=== PATIENT | male | born 1945 | race Hispanic/Latino ===

== ENCOUNTER 2021-09-10 18:14 | Emergency (ER) | payer OTHER, MEDICARE ==
--- OUTSIDE RECORDS SUMMARY | 2021-09-10 18:17 | XMS REPORT | Continuity of Care Document ---
:1945 Author Organization [facility] t Address [address] [place] [address] Care Team Providers Name Role Phone Russel Minh Haque Attending Clinician Unavailable Problems This patient has no known problems. Allergies, Adverse Reactions, Alerts This patient has no known allergies or adverse reactions. Medications Ordered Filled Start Stop Current Ordering Indication Dosage Frequency Signature Comments Components Source Medication Medication Date Date Medication? Clinician (SIG) Name Name Losartan Losartan Yes Minh 0.5 tablet Common Potassium Potassium Goode Spir it [facility] Warfarin Warfarin Yes Minh 1 tablet C ommon Sodium Sodium Goode [facility] Carvedilol Carvedilol Yes Minh as C ommon Goode directed [facility] Digoxin Digoxin Yes Minh 1 tablet Com mon [facility] Spironolact Spironolact Yes Minh 1 tablet Common one one [facility] Immunizations Ordered Immunization Filled Immunization Date Status Commen ts Source Name Name FluAD FluAD 2018-11-15 Completed [facility] 00:00:00 [facility] Procedures This patient has no known procedures. Encounters Start End Encounter Admission Attending Care Care Encounter Source Date/Time Date/Time Type Type Clinicians Facility Department ID 2021-04-29 Outpatient Russel [facility] [id number] Common 13:00:01 Minh [facility] 2021-03-04 Outpatient Goode [facility] [id number] Common 14:30:45 Minh [facility] 2021-03-04 Outpatient Goode, STLMLC STLMLC [id number] Common 13:12:22 Minh [id number] [facility] 2021-03-04 Outpatient Goode, STLMLC STLMLC [id number] Common 12:33:58 Minh [id number] [facility] 2021-03-04 Outpatient Goode, STLMLC STLMLC [id number] Common 12:19:44 Minh [id number] [facility] 2021-03-04 Outpatient Goode, STLMLC STLMLC [id number] Common 11:22:52 Minh [id number] [facility] 2021-03-04 Outpatient Goode, STLMLC STLMLC [id number] Common 11:17:42 Minh [id number] [facility] 2021-03-04 Outpatient Goode, STLMLC STLMLC [id number] Common 11:01:14 Minh [id number] [facility] 2021-08-24 2021-08-24 ambulatory STLMLC STLMLC [id number] Common 00:00:00 00:00:00 [facility] 2021-08-18 2021-08-18 ambulatory STLMLC STLMLC [id number] Common 00:00:00 00:00:00 [facility] 2021-08-17 2021-08-17 ambulatory STLMLC STLMLC [id number] Common 00:00:00 00:00:00 [facility] 2021-07-16 2021-07-16 ambulatory STLMLC STLMLC [id number] Common 00:00:00 00:00:00 [facility] 2021-05-04 2021-05-04 ambulatory STLMLC STLMLC [id number] Common 00:00:00 00:00:00 [facility] 2021-04-29 2021-04-29 ambulatory STLMLC STLMLC [id number] Common 00:00:00 00:00:00 [facility] 2021-04-29 2021-04-29 ambulatory STLMLC STLMLC [id number] Common 00:00:00 00:00:00 [facility] 2021-02-10 2021-02-10 ambulatory STLMLC STLMLC [id number] Common 00:00:00 00:00:00 [facility] 2021-02-10 2021-02-10 ambulatory STLMLC STLMLC [id number] Common 00:00:00 00:00:00 [facility] 2021-01-20 2021-01-20 ambulatory STLMLC STLMLC [id number] Common 00:00:00 00:00:00 [facility] 2020-12-30 2020-12-30 ambulatory STLMLC STLMLC [id number] Common 00:00:00 00:00:00 [facility] 2020-12-30 2020-12-30 ambulatory STLMLC STLMLC [id number] Common 00:00:00 00:00:00 [facility] 2020-09-16 2020-09-16 Outpatient STLMLC STLMLC [id number] Common 00:00:00 00:00:00 [facility] 2020-04-07 2020-04-07 Outpatient STLMLC STLMLC [id number] Common 00:00:00 00:00:00 [facility] 2019-11-14 2019-11-14 Outpatient STLMLC STLMLC [id number] Common 00:00:00 00:00:00 [facility] 2019-11-14 2019-11-14 Outpatient STLMLC STLMLC [id number] Common 00:00:00 00:00:00 [facility] 2019-07-03 2019-07-03 [facility] [id number] Common 15:15:00 15:15:00 [address] [employer] [address] [facility] 2019-05-18 2019-05-18 [facility] [id number] Common 14:57:00 14:57:[address] [employer] [address] [facility] 2019-04-18 2019-04-18 [facility] [id number] Common 11:15:00 11:15:[address] [facility] 2019-02-22 2019-02-22 [facility] [id number] Common 14:45:00 14:45:[address] [facility] 2019-02-13 2019-02-13 [facility] [id number] Common 16:45:00 16:45:[address] [facility] 2018-11-15 2018-11-15 [facility] [id number] Common 13:15:00 13:15:[address] [facility] 2018-08-07 2018-08-07 [facility] [id number] Common 16:30:00 16:30:[address] [facility] 2018-05-11 2018-05-11 [facility] [id number] Common 09:15:00 09:15:[address] [facility] 2018-04-25 2018-04-25 [facility] [id number] Common 15:15:00 15:15:[address] [facility] 2017-11-22 2017-11-22 [facility] [id number] Common 08:00:00 08:00:[address] [facility] Results This patient has no known results.
--- NOTE | 2021-09-10 19:07 | RAD REPORT ---
EXAM DESCRIPTION: RAD - Knee Left 3 View - 09/10/2021 6:53 pm CLINICAL HISTORY: PAIN COMPARISON: No comparisons FINDINGS: A patella fracture is present. There is a transverse fracture through the midportion of th e patella with an additional sagittally oriented fracture line extending from the transverse fracture line to the superior margin of the patella. No significant distraction is identified. There are dege nerative spurs along the articular margins of the patella. Medial compartment narrowing is present with medial and lateral compartment marginal spurring. Spurri ng seen along the intercondylar notch and tibial spine. Femoral condyle and tibial plateau fractures are not identifiable.Large joint effusion or hemarthrosis present. IMPRESSION: Comminuted patella fracture. Large joint effusion or hemarthrosis. 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
--- NOTE | 2021-09-10 19:39 | EDPHYS ---
Physician Documentation [facility] Name: Ignacio Honeycutt Age: 76 yrs Sex: Male : 1945 Arrival Date: 09/10/2021 Time: 18:16 Bed 7 Private MD: ED Physician Linwood Garces HPI: 09/10 23:42 This 76 yrs old Male presents to ER via EMS with complaints of Leg Pain. kb 23:42 The patient presents with decreased range of motion, pain, swelling, tenderness. The kb complaints affect the left knee. Context: The problem was sustained at a store, resulted from the patient falling, the patient is not able to bear weight, the patient is not able to ambulate. Onset: The symptoms/episode began/occurred just prior to arrival. Modifying factors: The symptoms are alleviated by nothing. the symptoms are aggravated by movement. Associated signs and symptoms: Pertinent positives: swelling, Pertinent negatives calf tenderness, fever, nausea, numbness, rash, tingling, vomiting, warmth, weakness. Treatment prior to arrival includes: no previous treatment. Severity of symptoms: At their worst the symptoms were moderate, in the emergency department the symptoms are unchanged. The patient has not experienced similar symptoms in the past. The patient has not recently seen a physician. Patient states he slipped on a wet surface at [facility] just prior to arrival causing him to fall. Reports pain to left knee. Historical: - Allergies: 18:21 No Known Allergies; ph - Immunization history:: Adult Immunizations up to date. - Social history:: Smoking status: Patient denies any tobacco usage or history of. ROS: 23:42 Constitutional: Negative for fever, chills, and weight loss. kb 23:42 MS/extremity: Positive for decreased range of motion, pain, swelling, tenderness, of the left knee. 23:42 All other systems are negative. Exam: 23:42 Constitutional: This is a well developed, well nourished patient who is awake, alert, kb and in no acute distress. Head/Face: Normocephalic, atraumatic. ENT: Moist Mucous membranes Respiratory: Respirations even and unlabored. No increased work of breathing. Talking in full sentences Skin: Warm, dry with normal turgor. Normal color. Neuro: Awake and alert, GCS 15, oriented to person, place, time, and situation. Moves all extremities. Normal gait. Psych: Awake, alert, with orientation to person, place and time. Behavior, mood, and affect are within normal limits. 23:42 Musculoskeletal/extremity: Extremities: grossly normal except: noted in the left knee: decreased ROM, pain, swelling, tenderness, ROM: limited active range of motion, limited active range of motion due to pain, Circulation is intact in all extremities. Sensation intact. Weight bearing: is unable to bear weight. Vital Signs: 18:18 BP 141 / 88; Pulse 59; Resp 18; Temp 97.8; Pulse Ox 97% on R/A; Weight 90.72 kg; Height ph 5 ft. 11 in. (180.34 cm); 18:18 Body Mass Index 27.89 (90.72 kg, 180.34 cm) ph MDM: 18:25 Patient medically screened. kb 19:25 Data reviewed: vital signs, nurses notes. Data interpreted: Pulse oximetry: on room air kb is 97 %. Interpretation: normal. Counseling: I had a detailed discussion with the patient and/or guardian regarding: the historical points, exam findings, and any diagnostic results supporting the discharge/admit diagnosis, radiology results, the need for outpatient follow up, a orthopedic surgeon, to return to the emergency department if symptoms worsen or persist or if there are any questions or concerns that arise at home. Physician consultation: Kuldip Pan MD was contacted at 19:26, regarding consult, patient's condition, and will see patient in office, next week, recommends knee immobilizer to be worn at all times and crutches. Pt may weight bear with crutches and knee immobilizer. He will see pt in clinic next week. 09/10 18:22 Order name: Knee Left 3 View XRAY; Complete Time: 19:10 ph 09/10 18:22 Order name: Ice pack; Complete Time: 19:11 ph 09/10 19:25 Order name: Knee Immobilizer; Complete Time: 19:56 kb 09/10 19:25 Order name: Crutches; Complete Time: 19:56 kb Administered Medications: 19:50 Drug: [place] (HYDROcodone-acetaminophen) (7.5 mg-325 mg) 1 tabs Route: PO; ll3 19:57 Follow up: Response: Medication administered at discharge. ll3 19:50 Drug: Ibuprofen 400 mg Route: PO; ll3 19:57 Follow up: Response: Medication administered at discharge. ll3 Disposition: 09/11 09:08 Co-signature as Attending Physician, Linwood Garces MD I agree with the assessment and kdr plan of care. Disposition Summary: 09/10/21 19:39 Discharge Ordered Location: Home kb Condition: Stable kb Diagnosis - Displaced comminuted fracture of left patella, initial encounter for closed fracturekb Followup: kb - With: Emergency Department - When: As needed - Reason: Worsening of condition Followup: kb - With: Private Physician - When: 2 - 3 days - Reason: Recheck today's complaints, Continuance of care, Re-evaluation by your physician Followup: kb - With: Kuldip Pan MD - When: Tomorrow - Reason: Recheck today's complaints Discharge Instructions: - Discharge Summary Sheet kb - Patellar Fracture, Adult kb Forms: - Medication Reconciliation Form kb - Thank You Letter kb - Antibiotic Education kb - Prescription Opioid Use kb Prescriptions: - Diclofenac Sodium 75 mg Oral tablet,delayed release (DR/EC) - take 1 tablet by ORAL route 2 times per day As needed; 30 tablet; Refills: 0, kb Product Selection Permitted - orphenadrine citrate 100 mg Oral Tablet Sustained Release - take 1 tablet by ORAL route 2 times per day As needed; 20 tablet; Refills: 0, kb Product Selection Permitted Signatures: Dispatcher [employer] EDMS Shi Paul, SOLUTION DESIGN ENGINEER-C SOLUTION DESIGN ENGINEER-Linwood Landeros MD MD [facility] Mary Vale RN RN Shari Sullivan RN RN 3
--- NOTE | 2021-09-10 19:39 | ER ---
Nurse's Notes [facility] Name: Ignacio Honeycutt Age: 76 yrs Sex: Male : 1945 Arrival Date: 09/10/2021 Time: 18:16 Bed 7 Private MD: Diagnosis: Displaced comminuted fracture of left patella, initial encounter for closed fracture Presentation: 09/10 18:18 Chief complaint: EMS states: Slipped and fell on a liquid substance on the floor in his hallway, states that L knee twisted then he landed on the knee, c/o pain to L knee, small abrasion to L ankle, no other injuries, swelling present. Coronavirus screen: Vaccine status: Patient reports receiving the 2nd dose of the covid vaccine. Ebola Screen: No symptoms or risks identified at this time. Initial Sepsis Screen: Does the patient meet any 2 criteria? No. Patient's initial sepsis screen is negative. Does the patient have a suspected source of infection? No. Patient's initial sepsis screen is negative. Risk Assessment: Do you want to hurt yourself or someone else? Patient reports no desire to harm self or others. Onset of symptoms was September 10, 2021. 18:18 Method Of Arrival: EMS: [facility] 18:18 Acuity: SIMONE 4 ph Triage Assessment: 18:27 General: Appears in no apparent distress. well groomed, Behavior is calm, cooperative, ph appropriate for age. Pain: Complains of pain in left knee. Neuro: Ruff Agitation-Sedation Scale (RASS): 0 - Alert and Calm Level of Consciousness is awake, alert, obeys commands, Oriented to person, place, time, situation. Cardiovascular: Capillary refill < 3 seconds in bilateral fingers Patient's skin is warm and dry. Respiratory: Airway is patent Respiratory effort is even, unlabored. Derm: Skin is healthy with good turgor, Skin is pink, warm \T\ dry. Musculoskeletal: Swelling present in left knee. Historical: - Allergies: 18:21 No Known Allergies; ph - Immunization history:: Adult Immunizations up to date. - Social history:: Smoking status: Patient denies any tobacco usage or history of. Screenin:28 Abuse screen: Denies threats or abuse. Denies injuries from another. Nutritional ph screening: No deficits noted. Tuberculosis screening: No symptoms or risk factors identified. Fall Risk None identified. Assessment: 18:30 General: SEE TRIAGE ASSESSMENT. ph Vital Signs: 18:18 BP 141 / 88; Pulse 59; Resp 18; Temp 97.8; Pulse Ox 97% on R/A; Weight 90.72 kg; Height ph 5 ft. 11 in. (180.34 cm); 18:18 Body Mass Index 27.89 (90.72 kg, 180.34 cm) ph ED Course: 18:16 Patient arrived in ED. mr 18:18 Mary Vale, RN is Primary Nurse. ph 18:21 Triage completed. ph 18:22 Arm band placed on Patient placed in an exam room, in the treatment room, on a ph stretcher. 18:25 Shi Paul F[facility]-C [facility]. kb 18:25 Linwood Garces MD is Attending Physician. kb 18:28 Patient has correct armband on for positive identification. Bed in low position. Call ph light in reach. Pulse ox on. NIBP on. Ice pack to injury. 18:55 Knee Left 3 View XRAY In Process Unspecified. EDMS 19:39 Kuldip Pan MD is Referral Physician. kb 19:57 No provider procedures requiring assistance completed. Patient did not have IV access ll3 during this emergency room visit. Administered Medications: 19:50 Drug: [place] (HYDROcodone-acetaminophen) (7.5 mg-325 mg) 1 tabs Route: PO; ll3 19:57 Follow up: Response: Medication administered at discharge. ll3 19:50 Drug: Ibuprofen 400 mg Route: PO; ll3 19:57 Follow up: Response: Medication administered at discharge. ll3 Medication: 18:28 VIS not applicable for this client. ph Outcome: 19:39 Discharge ordered by . kb 19:57 Discharged to home with crutches, with family. ll3 19:57 Condition: stable 19:57 Discharge instructions given to patient, family, Instructed on discharge instructions, follow up and referral plans. medication usage, Demonstrated understanding of instructions, follow-up care, medications, Prescriptions given X 2. 19:58 Patient left the ED. ll3 Signatures: Dispatcher [employer] EDDE Shi Paul FNP-C FNP-Venice Alexander mr Mary Vale RN RN Loubet, Lynsea, RN RN ll3
[2021-09-10] MEDS ORDERED: IBUPROFEN 400 MG TAB ONE (19:47)
[2021-09-10] MEDS ORDERED: HYDROCODONE/APAP 7.5/325 MG TAB ONE (19:47)
[2021-09-10 21:22] VITALS: BP 141/88; TEMP 97.8; O2SAT 97
== END 2021-09-10 19:58 | disposition home or self-care (01) ==
LOC: ER 18:14
DX: S82.042A Displaced comminuted fracture of left patella, initial encounter for closed fracture (principal)
CPT/HCPCS: 99284

== ENCOUNTER 2021-09-11 14:11 | Emergency (ER) | payer OTHER, MEDICARE ==
--- OUTSIDE RECORDS SUMMARY | 2021-09-11 14:14 | XMS REPORT | Continuity of Care Document ---
:1945 Author Organization [facility] t Address [address] [place] [address] Care Team Providers Name Role Phone Russel [...] Yes Minh 0.5 tablet Common Potassium Potassium [facility] Spir [facility] Warfarin Warfarin Yes Minh 1 tablet C ommon Sodium Sodium [facility] Carvedilol Carvedilol Yes Minh as C ommon Goode directed [facility] Digoxin Digoxin Yes Minh 1 tablet Com mon [facility] Spironolact Spironolact Yes Minh 1 tablet Common one one [facility] Immunizations Ordered Immunization Filled Immunization Date Status Commen ts Source Name Name FluAD FluAD 2018-11-15 Completed [facility] 00:00:00 [facility] Procedures This patient has no known procedures. Encounters Start End Encounter Admission Attending Care Care Encounter Source Date/Time Date/Time Type Type Clinicians Facility Department ID 2021-04-29 Outpatient [facility] [id number] Common 13:00:01 Minh [facility] 2021-03-04 Outpatient [facility] [id number] Common 14:30:45 Minh [facility] 2021-03-04 Outpatient Goode, STLMLC STLMLC [id number] Common 13:12:22 Minh [id number] [facility] 2021-03-04 Outpatient Goode, STLMLC STLMLC [id number] Common 12:33:58 Minh [facility] 2021-03-04 Outpatient Goode, STLMLC STLMLC [id number] Common 12:19:44 Minh [id number] [facility] 2021-03-04 Outpatient Goode, STLMLC STLMLC [id number] Common 11:22:52 Minh [id number] [facility] 2021-03-04 Outpatient Goode, STLMLC STLMLC [id number] Common 11:17:42 Minh [id number] [facility] 2021-03-04 Outpatient Goode, STLMLC STLMLC [id number] Common 11:01:14 Minh [id number] [facility] 2021-08-24 2021-08-24 ambulatory STLMLC STLMLC [id number] Common 00:00:00 00:00:00 [facility] 2021-08-18 2021-08-18 ambulatory STLMLC STLMLC [id number] Common 00:00:00 00:00:00 [facility] 2021-08-17 2021-08-17 ambulatory STLMLC STLMLC [id number] Common 00:00:00 00:00:00 [facility] 2021-07-16 2021-07-16 ambulatory STLMLC STLMLC [id number] Common 00:00:00 00:00:00 [facility] 2021-05-04 2021-05-04 ambulatory STLMLC STLMLC [id number] Common 00:00:00 00:00:00 [facility] 2021-04-29 2021-04-29 ambulatory STLMLC STLMLC [id number] Common 00:00:00 00:00:00 [facility] 2021-04-292021-04-29 ambulatory STLMLC STLMLC [id number] Common 00:00:00 00:00:00 [facility] 2021-02-10 2021-02-10 ambulatory STLMLC STLMLC [id number] Common 00:00:00 00:00:00 [facility] 2021-02-10 2021-02-10 ambulatory STLMLC STLMLC [id number] Common 00:00:00 00:00:00 [facility] 2021-01-20 2021-01-20 ambulatory STLMLC STLMLC [id number] Common 00:00:00 00:00:00 [facility] 2020-12-30 2020-12-30 ambulatory STLMLC STLMLC [id number] Common 00:00:00 00:00:00 [facility] 2020-12-30 2020-12-30 ambulatory STLMLC STLMLC [id number] Common 00:00:00 00:00:00 [facility] 2020-09-16 2020-09-16 Outpatient STLMLC STLMLC [id number] Common 00:00:00 00:00:00 [facility] 2020-04-07 2020-04-07 Outpatient STLMLC STLMLC [id number] Common 00:00:00 00:00:00 [facility] 2019-11-14 2019-11-14 Outpatient STLMLC STLMLC [id number] Common 00:00:00 00:00:00 [facility] 2019-11-14 2019-11-14 Outpatient STLMLC STLMLC [id number] Common 00:00:00 00:00:00 [facility] 2019-07-03 2019-07-03 [facility] [id number] Common 15:15:00 15:15:[address] [facility] 2019-05-18 2019-05-18 [facility] [id number] Common 14:57:00 14:57:[address] [facility] 2019-04-18 2019-04-18 [facility] [id number] Common 11:15:00 11:15:[address] [facility] 2019-02-22 2019-02-22 [facility] [id number] Common 14:45:00 14:45:[address] [facility] 2019-02-13 2019-02-13 [facility] [id number] Common 16:45:00 16:45:[address] [facility] 2018-11-15 2018-11-15 [facility] [id number] Common 13:15:00 13:15:[address] [facility] 2018-08-07 2018-08-07 [facility] [id number] Common 16:30:00 16:30:[address] [facility] 2018-05-11 2018-05-11 [facility] [id number] Common 09:15:00 09:15:[address] [facility] 2018-04-25 2018-04-25 [facility] [id number] Common 15:15:00 15:15:[address] [facility] 2017-11-22 2017-11-22 [facility] [id number] Common 08:00:00 08:00:[address] [facility] Results This patient has no known results.
[2021-09-11] MEDS ORDERED: MORPHINE 4 MG/ML SYR ONE ×2 (14:46→15:50)
[2021-09-11] MEDS ORDERED: ONDANSETRON 4 MG (ODT) TAB ONE (14:46)
--- NOTE | 2021-09-11 18:06 | ER ---
Nurse's Notes [facility] Name: Ignacio Honeycutt Age: 76 yrs Sex: Male : 1945 Arrival Date: 09/11/2021 Time: 14:12 Bed 18 Private MD: Diagnosis: Closed comminuted left patella fracture Presentation: 09/11 14:12 Chief complaint: Patient states: he was evaluated yesterday in the ED and dx with a ap3 left broken kneecap. patient states he is here today because his pain is not controlled. He reports being dx with an anti-inflammatory but his wine blender informed him not to take it. Patient is in the ed with a left knee immobilizer. Coronavirus screen: At this time, the client does not indicate any symptoms associated with coronavirus-19. Ebola Screen: No symptoms or risks identified at this time. Initial Sepsis Screen: Does the patient meet any 2 criteria? No. Patient's initial sepsis screen is negative. Does the patient have a suspected source of infection? No. Patient's initial sepsis screen is negative. Risk Assessment: Do you want to hurt yourself or someone else? Patient reports no desire to harm self or others. Onset of symptoms was September 10, 2021. 14:12 Method Of Arrival: Wheelchair ap3 14:12 Acuity: SIMONE 3 ap3 Triage Assessment: 14:15 General: Appears uncomfortable, Behavior is anxious, restless. Pain: Complains of pain ap3 in left leg Pain does not radiate. Pain currently is 10 out of 10 on a pain scale. Pain began suddenly. Neuro: Level of Consciousness is awake, alert, obeys commands, Oriented to person, place, time, situation, Appropriate for age Speech is normal. Cardiovascular: Patient's skin is warm and dry. Respiratory: Airway is patent Respiratory effort is even, unlabored, Respiratory pattern is regular, symmetrical. Musculoskeletal: Range of motion: intact in left knee. 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 - Social history:: Smoking status: Patient denies any tobacco usage or history of. Screenin:18 Abuse screen: Denies threats or abuse. Nutritional screening: No deficits noted. ap3 Tuberculosis screening: No symptoms or risk factors identified. Fall Risk Fall in past 12 months (25 points). Secondary diagnosis (15 points) impaired mobility, No IV (0 pts). Ambulatory Aid- Crutches/Cane/Walker (15 pts). Gait- Impaired (20 pts.). Mental Status- Oriented to own ability (0 pts). Total Clemens Fall Scale indicates High Risk Score (45 or more points). Fall prevention measures have been instituted. Side Rails Up X 2 Placed Close to Nursing Station Frequent Obs/Assessments Occuring Family Present and informed to notify staff if the need to leave the bedside As available patient and family educated on Fall Prevention Program and Strategies. Assessment: 14:20 General: Appears uncomfortable, Behavior is calm, cooperative. Pain: Complains of pain aa5 in left knee Pain currently is 10 out of 10 on a pain scale. Quality of pain is described as radiating, sharp, Pain began 1 day ago. Is continuous, Aggravated by repositioning. Neuro: Level of Consciousness is awake, alert, obeys commands, Oriented to person, place, time, situation. Cardiovascular: Patient's skin is warm and dry. Respiratory: Airway is patent Respiratory effort is even, unlabored, Respiratory pattern is regular, symmetrical. GI: No signs and/or symptoms were reported involving the gastrointestinal system. : No signs and/or symptoms were reported regarding the genitourinary system. EENT: No signs and/or symptoms were reported regarding the EENT system. Derm: Skin is pink, warm \T\ dry. Musculoskeletal: knee immobilizer noted to left knee. 15:09 Reassessment: Patient is alert, oriented x 3, equal unlabored respirations, skin aa5 warm/dry/pink. Patient states symptoms have not improved. General: Appears uncomfortable. Pain: Pain currently is 10 out of 10 on a pain scale. 15:40 Reassessment: Patient is alert, oriented x 3, equal unlabored respirations, skin aa5 warm/dry/pink. Patient states symptoms have not improved. Pain: Pain currently is 10 out of 10 on a pain scale. 15:40 Reassessment: EDUCATION DIAGNOSTICIAN was notified of pain level. aa5 16:30 Reassessment: Patient is alert, oriented x 3, equal unlabored respirations, skin aa5 warm/dry/pink. Patient states symptoms have not improved. Reassessment: EDUCATION DIAGNOSTICIAN notified of pt's reported pain level. General: Appears comfortable, Behavior is calm, cooperative. Pain: Pain currently is 10 out of 10 on a pain scale. 18:10 Reassessment: Patient is alert, oriented x 3, equal unlabored respirations, skin ha1 warm/dry/pink. stated that pain has decreased. 19:00 Reassessment: Patient is alert, oriented x 3, equal unlabored respirations, skin ha1 warm/dry/pink. Patient is alert/active/playful, equal unlabored respirations, skin warm/dry/pink. Patient states feeling better. pain was decreased with medication. Vital Signs: 14:12 BP 137 / 85; Pulse 60; Resp 19; Temp 98.8; Pulse Ox 97% ; Weight 92.53 kg; Height 5 ft. ap3 11 in. (180.34 cm); Pain 10/10; 15:09 BP 157 / 88; Pulse 62; Resp 16 S; Pulse Ox 98% on R/A; Pain 10/10; aa5 16:10 BP 155 / 85; Pulse 60; Resp 15 S; Pulse Ox 96% on R/A; ha1 17:39 BP 153 / 68; Pulse 60; Resp 16 S; Pulse Ox 95% on R/A; Pain 10/10; ha1 18:40 BP 157 / 85; Pulse 60; Resp 15 S; Pulse Ox 96% on R/A; Pain 4/10; ha1 14:12 Body Mass Index 28.45 (92.53 kg, 180.34 cm) ap3 ED Course: 14:12 Patient arrived in ED. ap3 14:15 Triage completed. ap3 14:18 Arm band placed on right wrist. ap3 14:19 Patient has correct armband on for positive identification. Bed in low position. Call ap3 light in reach. Side rails up X 1. Adult w/ patient. 14:22 Jesse Salazar NP is PHCP. pm1 14:22 Linwood Garces MD is Attending Physician. pm1 14:22 Yuni Esteban, RN is Primary Nurse. aa5 17:00 No provider procedures requiring assistance completed. ha1 17:00 Patient did not have IV access during this emergency room visit. ha1 18:05 Kuldip Pan MD is Referral Physician. pm1 Administered Medications: 14:50 Drug: morphine 4 mg Route: IM; Site: right deltoid; aa5 15:10 Follow up: Response: No adverse reaction; Pain is unchanged, physician notified aa5 14:50 Drug: Ondansetron 4 mg Route: PO; aa5 15:40 Follow up: Response: No adverse reaction aa5 19:33 Follow up: Response: No adverse reaction ha1 15:49 Drug: morphine 4 mg Route: IM; Site: left deltoid; aa5 16:15 Follow up: Response: Pain is decreased; RASS: Alert and Calm (0) ha1 17:40 Drug: [place] (HYDROcodone-acetaminophen) 10 mg-325 mg 1 tabs {Note: pain 10/10.} Route: ha1 PO; 18:10 Follow up: Response: Pain is decreased; RASS: Alert and Calm (0) ha1 Medication: 19:29 VIS not applicable for this client. ha1 Outcome: 18:06 Discharge ordered by . pm1 19:07 Patient left the ED. iw 19:07 Condition: stable ha1 19:07 Discharge instructions given to patient, family, Instructed on discharge instructions, ha1 follow up and referral plans. medication usage, Demonstrated understanding of instructions, follow-up care, medications, Prescriptions given X 1. 19:07 Discharged to home via wheelchair, with family. ha1 Signatures: Nidhi Bolanos RN RN iw Yuni Esteban, RN RN aa5 Jesse Salazar, EDUCATION DIAGNOSTICIAN EDUCATION DIAGNOSTICIAN pm1 Emma Molina RN RN ap3 Cheryle Plunkett RN RN ha1 Corrections: (The following items were deleted from the chart) 14:19 14:12 Acuity: SIMONE 4 ap3 ap3
--- NOTE | 2021-09-11 18:06 | EDPHYS ---
Physician Documentation [facility] Name: Ignacio Honeycutt Age: 76 yrs Sex: Male : 1945 Arrival Date: 09/11/2021 Time: 14:12 Bed 18 Private MD: ED Physician Linwood Garces HPI: 09/11 14:34 This 76 yrs old Male presents to ER via Wheelchair with complaints of Left pm1 Knee Pain. 14:34 The patient presents with pain, that is acute. The complaints affect the left knee. pm1 Context: The problem was sustained at a store, resulted from the patient falling, Problem is a result from a previous injury: No. Onset: The symptoms/episode began/occurred yesterday. Modifying factors: The symptoms are alleviated by nothing. Associated signs and symptoms: Pertinent negatives numbness, tingling. Severity of symptoms: in the emergency department the symptoms are unchanged, a " 10" out of "10". The patient has been recently seen at the [facility] Emergency Department, yesterday, for similar complaints X-rays were performed, was given a prescription for pain medications. 76-year-old male presents to the ER with complaints of left knee pain. Patient with a fall injury yesterday resulting in left patellar fracture. Patient was seen here and had x-rays given pain medication in ER and discharged home with pain medications. Patient consulted with his field clinical engineer who recommended that he not take the NSAID because he is taking warfarin. Patient has not taken any pain medicines at home for his left knee pain. Patient reports improvement in pain with pain medicine, [place] in the ER yesterday lasting proxy 2 to 3 hours. Patient has contacted Dr. Pan's office and was informed that Dr. Pan's office will get copies of the x-ray on Tuesday and will contact them back to set up appointment. 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 - Social history:: Smoking status: Patient denies any tobacco usage or history of. ROS: 14:34 Constitutional: Negative for fever, chills, and weight loss, Cardiovascular: Negative pm1 for chest pain, palpitations, and edema, Respiratory: Negative for shortness of breath, cough, wheezing, and pleuritic chest pain. 14:34 Skin: Negative for injury, rash, and discoloration, Neuro: Negative for headache, weakness, numbness, tingling, and seizure. 14:34 MS/extremity: Positive for pain, of the left knee. 14:34 All other systems are negative. Exam: 14:34 Constitutional: This is a well developed, well nourished patient who is awake, alert, pm1 and in no acute distress. Head/Face: Normocephalic, atraumatic. 14:34 Skin: Warm, dry with normal turgor. Normal color with no rashes, no lesions, and no evidence of cellulitis. 14:34 Cardiovascular: Exam negative for acute changes, Pulses: no pulse deficits are appreciated, to left lower extremity. 14:34 Musculoskeletal/extremity: Extremities: grossly normal except: noted in the left knee: mild swelling with moderate tenderness, There is no evidence of left calf swelling or tenderness, the left foot Sensation intact. 14:34 Neuro: Exam negative for acute changes, Orientation: is normal, Mentation: is normal, Motor: moves all fours, Sensation: numbness, is not appreciated, tingling, is not appreciated. Vital Signs: 14:12 BP 137 / 85; Pulse 60; Resp 19; Temp 98.8; Pulse Ox 97% ; Weight 92.53 kg; Height 5 ft. ap3 11 in. (180.34 cm); Pain 10/10; 15:09 BP 157 / 88; Pulse 62; Resp 16 S; Pulse Ox 98% on R/A; Pain 10/10; aa5 16:10 BP 155 / 85; Pulse 60; Resp 15 S; Pulse Ox 96% on R/A; ha1 17:39 BP 153 / 68; Pulse 60; Resp 16 S; Pulse Ox 95% on R/A; Pain 10/10; ha1 18:40 BP 157 / 85; Pulse 60; Resp 15 S; Pulse Ox 96% on R/A; Pain 4/10; ha1 14:12 Body Mass Index 28.45 (92.53 kg, 180.34 cm) ap3 MDM: 14:24 Patient medically screened. pm1 14:39 Data reviewed: vital signs. Data interpreted: Pulse oximetry: on room air is 97 %. pm1 Interpretation: normal. 15:40 ED course: Patient reports no improvement in pain. Will give additional morphine to pm1 provide break through pain relief for disposition home with narcotic pain medications. 17:07 ED course: Patient requested admission for his knee pain. Explained to patient the pm1 presence of a fracture is going to result in continued pain, and unfortunately he does not meet criteria for admission. Will give the patient additional pain medication prior to discharging him home. Informed by nurse that he has been able to sleep in the ER with prior medications given in the ER and he reported that the pain prevented him from sleeping well last night. . 18:05 Counseling: I had a detailed discussion with the patient and/or guardian regarding: the pm1 historical points, exam findings, and any diagnostic results supporting the discharge/admit diagnosis, the need for outpatient follow up, for definitive care, a orthopedic surgeon, to return to the emergency department if symptoms worsen or persist or if there are any questions or concerns that arise at home. 18:13 ED course: [place] reviewed. pm1 09/11 15:40 Order name: Ice pack; Complete Time: 15:49 pm1 Administered Medications: 14:50 Drug: morphine 4 mg Route: IM; Site: right deltoid; aa5 15:10 Follow up: Response: No adverse reaction; Pain is unchanged, physician notified aa5 14:50 Drug: Ondansetron 4 mg Route: PO; aa5 15:40 Follow up: Response: No adverse reaction aa5 19:33 Follow up: Response: No adverse reaction ha1 15:49 Drug: morphine 4 mg Route: IM; Site: left deltoid; aa5 16:15 Follow up: Response: Pain is decreased; RASS: Alert and Calm (0) ha1 17:40 Drug: [place] (HYDROcodone-acetaminophen) 10 mg-325 mg 1 tabs {Note: pain 10/10.} Route: ha1 PO; 18:10 Follow up: Response: Pain is decreased; RASS: Alert and Calm (0) ha1 Disposition Summary: 09/11/21 18:06 Discharge Ordered Location: Home pm1 Problem: new pm1 Symptoms: have improved pm1 Condition: Stable pm1 Diagnosis - Closed comminuted left patella fracture pm1 Followup: pm1 - With: Emergency Department - When: As needed - Reason: Worsening of condition Followup: pm1 - With: - When: 2 - 3 days - Reason: Recheck today's complaints, Continuance of care, Re-evaluation by your physician Discharge Instructions: - Discharge Summary Sheet pm1 - How to Use a Knee Immobilizer pm1 - Patellar Fracture, Adult pm1 Forms: - Medication Reconciliation Form pm1 - Thank You Letter pm1 - Antibiotic Education pm1 - Prescription Opioid Use pm1 Prescriptions: - Tramadol 50 mg Oral Tablet - take 1 tablet by ORAL route every 8 hours as needed; 12 tablet; Refills: 0, pm1 Product Selection Permitted Signatures: Yuni Esteban RN RN aa5 Jesse Salazar NP MOBILE APPLICATION ARCHITECT pm1 Emma Molina RN RN ap3 Cheryle Plunkett RN RN 1
[2021-09-11 20:45] VITALS: TEMP 98.8
[2021-09-11 20:52] VITALS: BP 153/68; O2SAT 95
== END 2021-09-11 19:07 | disposition home or self-care (01) ==
LOC: ER 14:11
DX: M25.562 Pain in left knee (principal); S82.042S Displaced comminuted fracture of left patella, sequela; Z95.0 Presence of cardiac pacemaker; Z79.01 Long term (current) use of anticoagulants
CPT/HCPCS: 96372; 99283; Q0162

== ENCOUNTER 2024-02-27 12:10 | Emergency (ER) | payer MEDICARE ==
--- OUTSIDE RECORDS SUMMARY | 2024-02-27 12:14 | XMS REPORT | Continuity of Care Document ---
Author Name Unknown Address [address] [facility] [address] [place] [address] [facility] thconnect Address [address] [facility] [address] [place] [address] Care Team Providers Care Senior Medical Transcriptionist Name Role Phone Minh Goode Attending Clinician Unavailable Eliud Dumont Attending Clinician Gucci Lim Attending Clinician Unavailabl e Gucci Lim Admitting Clinician Unavailabl e Payers Payer Name Policy Type Policy Number Effective Date Expiration Date Source [facility] (MEDICARE REPLACEMENT HMO) [id number] 2022 00:00:00 [facility]ICARE [facility] [id number] C [facility] C1 [id number] [facility] MEDICARE [facility] [id number] [place] [id number] [facility] Problems Condition Name Condition Details Condition Category Status Onset Date Resolution Date Last Treatment Date Treating Clinician Comments Source Automatic implantabl e cardiac defibrilla tor in situ Cardiac defibrilla tor in place Problem [facility] [id number] Cardiac defibrilla tor in situ Problem [facility] [id number] Benign prostatic hyperplasi a, unspecifie d whether lower urinary tract symptoms present Problem [facility] [id number] Atrial fibrillati on, unspecifie d type Problem [facility] [id number] +5th digit eff 11/07/18*Ch ronic atrial fibrillati on Problem [facility] [id number] [place] agent current use of anticoagul ant Problem [facility] [id number] HTN, goal below 150/90 Problem [facility] [id number] Microscopi c hematuria Problem [facility] [id number] Abnormal ejaculatio n Problem [facility] Allergies, Adverse Reactions, Alerts Allergy Name Allergy Type Status Severity Reaction(s) Onset Date Inactive Date Treating Clinician Comments Source No Known Allergie s DA Active U 08-19 00:00: 00 [facility] Social History Social Habit Start Date Stop Date Quantity Comments Source History of Tobacco Use [facility] Sex Assigned At [facility] Smoking Status Start Date Stop Date Source Former Smoker 2024-02-23 00:00:00 2024-02-23 00:00:00 [facility] Never Smoker [facility] Medications Ordered Medication Name Filled Medication Name Start Date Stop Date Current Medication? Ordering Clinician Indication Dosage Frequency Signature (SIG) Comments Components Source Kenalog (Triamcinol one) Kenalog (Triamcinol one) 2020-0 3-11 00:00: 00 No 40mg [facility] Carvedilol 25 MG Carvedilol 25 MG No Carvedilol 25 MG Warfarin Sodium 7.5 MG Warfarin Sodium 7.5 MG No 1{table t} QD Warfarin Sodium 7.5 MG Spironolact one 25 MG Spironolact one 25 MG No 1{table t} Spironolac tone 25 MG Losartan Potassium 25 MG Losartan Potassium 25 MG No .5{tabl et} QD Losartan Potassium 25 MG Digoxin 250 MCG Digoxin 250 MCG No 1{table t} QD Digoxin 250 MCG Immunizations Ordered Immunization Name Filled Immunization Name Date Status Comments Source Fluzone Fluzone 2020-12-30 13:38:00 Completed [facility] Fluzone Fluzone 2020-12-30 13:38:00 Completed [facility] Fluzone Fluzone 2020-12-30 13:38:00 Completed [facility] Fluzone Fluzone 2020-12-30 13:38:00 Completed [facility] Fluzone Fluzone 2020-12-30 13:38:00 Completed [facility] Fluzone Fluzone 2020-12-30 13:38:00 Completed [facility] Fluzone Fluzone 2020-12-30 13:38:00 Completed [facility] FluAD FluAD 2019-11-14 15:01:00 Completed [facility] FluAD FluAD 2019-11-14 15:01:00 Completed [facility] FluAD FluAD 2019-11-14 15:01:00 Completed [facility] FluAD FluAD 2019-11-14 15:01:00 Completed [facility] FluAD FluAD 2019-11-14 15:01:00 Completed [facility] FluAD FluAD 2019-11-14 15:01:00 Completed [facility] FluAD FluAD 2019-11-14 15:01:00 Completed [facility] FluAD FluAD 2018-11-15 14:05:00 Completed [facility] FluAD FluAD 2018-11-15 14:05:00 Completed [facility] FluAD FluAD 2018-11-15 14:05:00 Completed [facility] FluAD FluAD 2018-11-15 14:05:00 Completed [facility] FluAD FluAD 2018-11-15 14:05:00 Completed [facility] FluAD FluAD 2018-11-15 14:05:00 Completed [facility] FluAD FluAD 2018-11-15 14:05:00 Completed [facility] FluAD FluAD 2018-11-15 00:00:00 Completed [facility] FluAD FluAD 2017-11-09 15:19:00 Completed [facility] FluAD FluAD 2017-11-09 15:19:00 Completed [facility] FluAD FluAD 2017-11-09 15:19:00 Completed [facility] FluAD FluAD 2017-11-09 15:19:00 Completed [facility] FluAD FluAD 2017-11-09 15:19:00 Completed [facility] FluAD FluAD 2017-11-09 15:19:00 Completed [facility] FluAD FluAD 2017-11-09 15:19:00 Completed [facility] FluAD FluAD Unknown Completed [facility] Fluzone Fluzone Unknown Completed [facility] FluAD FluAD Unknown Completed [facility] Fluzone Fluzone Unknown Completed [facility] FluAD Unknown Completed [facility] Fluzone Fluzone Unknown Completed [facility] FluAD Unknown Completed [facility] Fluzone Fluzone Unknown Completed [facility] FluAD FluAD Unknown Completed [facility] Fluzone Fluzone Unknown Completed [facility] FluAD Unknown Completed [facility] Fluzone Fluzone Unknown Completed [facility] FluAD Unknown Completed [facility] Fluzone Fluzone Unknown Completed [facility] FluAD Unknown Completed [facility] Fluzone Fluzone Unknown Completed [facility] FluAD Unknown Completed [facility] Fluzone Fluzone Unknown Completed [facility] FluAD Unknown Completed [facility] Fluzone Fluzone Unknown Completed [facility] Flu[facility] FluAD Unknown Completed [facility] Fluzone Fluzone Unknown Completed [facility] FluAD Unknown Completed [facility] Fluzone Fluzone Unknown Completed [facility] FluAD Unknown Completed [facility] Fluzone Fluzone Unknown Completed [facility] FluAD Unknown Completed [facility] Fluzone Fluzone Unknown Completed [facility] FluAD FluAD Unknown Completed [facility] Fluzone Fluzone Unknown Completed [facility] Vital Signs Vital Name Observation Time Observation Value Comments S milice height 2024-02-23 14:30:00 71.5 [in_i] Comm on [facility] weight 2024-02-23 14:30:00 210 [lb_av] Comm on [facility] temperature 2024-02-23 14:30:00 97.8 [degF] Com mon [facility] bmi 2024-02-23 14:30:00 28.88 kg/m2 Comm on [facility] oximetry 2024-02-23 14:30:00 96 % Commo n [facility] respiratory rate 2024-02-23 14:30:00 18 /min [facility] blood pressure systolic 2024-02-23 14:30:00 146 mm[Hg] [facility] blood pressure diastolic 2024-02-23 14:30:00 77 mm[Hg[facility] height 2024-01-26 15:00:00 71.5 [in_i] Comm on [facility] weight 2024-01-26 15:00:00 215.6 [lb_av] Co mmon [facility] temperature 2024-01-26 15:00:00 97.9 [degF] Com mon [facility] bmi 2024-01-26 15:00:00 29.65 kg/m2 Comm on [facility] oximetry 2024-01-26 15:00:00 96 % Com[facility] respiratory rate 2024-01-26 15:00:00 16 /min [facility] blood pressure systolic 2024-01-26 15:00:00 128 mm[Hg] [facility] blood pressure diastolic 2024-01-26 15:00:00 62 mm[Hg] [facility] height 2023-09-26 14:50:00 71.5 [in_i] Comm on [facility] weight 2023-09-26 14:50:00 206 [lb_av] Comm on [facility] temperature 2023-09-26 14:50:00 97.6 [degF] Com mon [facility] bmi 2023-09-26 14:50:00 28.33 kg/m2 Comm on [facility] oximetry 2023-09-26 14:50:00 95 % Com[facility] blood pressure systolic 2023-09-26 14:50:00 138 mm[Hg] [facility] blood pressure diastolic 2023-09-26 14:50:00 82 mm[Hg] [facility] height 2023-08-25 15:00:00 71.5 [in_i] Comm on [facility] weight 2023-08-25 15:00:00 201.8 [lb_av] Co mmon [facility] temperature 2023-08-25 15:00:00 97.2 [degF] Com mon [facility] bmi 2023-08-25 15:00:00 27.75 kg/m2 Comm on [facility] oximetry 2023-08-25 15:00:00 95 % [facility] respiratory rate 2023-08-25 15:00:00 18 /min [facility] blood pressure systolic 2023-08-25 15:00:00 132 mm[Hg] [facility] blood pressure diastolic 2023-08-25 15:00:00 72 mm[Hg] [facility] height 2023-06-28 14:40:00 71.5 [in_i] Comm on [facility] weight 2023-06-28 14:40:00 210.8 [lb_av] Co mmon [facility] temperature 2023-06-28 14:40:00 97.2 [degF] Com mon [facility] bmi 2023-06-28 14:40:00 28.99 kg/m2 Comm on [facility] oximetry 2023-06-28 14:40:00 96 % Com[facility] respiratory rate 2023-06-28 14:40:00 18 /min [facility] blood pressure systolic 2023-06-28 14:40:00 137 mm[Hg] [facility] blood pressure diastolic 2023-06-28 14:40:00 72 mm[Hg] [facility] height 2023-06-09 15:30:00 71.5 [in_i] Comm on [facility] weight 2023-06-09 15:30:00 214.4 [lb_av] Co mmon [facility] temperature 2023-06-09 15:30:00 97.1 [degF] Com mon [facility] bmi 2023-06-09 15:30:00 29.48 kg/m2 Comm on [facility] oximetry 2023-06-09 15:30:00 99 % Com[facility] respiratory rate 2023-06-09 15:30:00 18 /min [facility] blood pressure systolic 2023-06-09 15:30:00 138 mm[Hg] Common [facility] blood pressure diastolic 2023-06-09 15:30:00 74 mm[Hg] [facility] height 2023-05-23 09:00:00 71.5 [in_i] Comm on [facility] weight 2023-05-23 09:00:00 209.0 [lb_av] Co mmon [facility] temperature 2023-05-23 09:00:00 98.4 [degF] Com mon [facility] bmi 2023-05-23 09:00:00 28.74 kg/m2 Comm on [facility] oximetry 2023-05-23 09:00:00 99 % Commo [facility] respiratory rate 2023-05-23 09:00:00 17 /min [facility] blood pressure systolic 2023-05-23 09:00:00 128 mm[Hg] Common [facility] blood pressure diastolic 2023-05-23 09:00:00 73 mm[Hg] [facility] height 2023-02-21 10:20:00 71.5 [in_i] Comm on [facility] weight 2023-02-21 10:20:00 205 [lb_av] Comm on [facility] temperature 2023-02-21 10:20:00 97.6 [degF] Com mon [facility] bmi 2023-02-21 10:20:00 28.19 kg/m2 [facility] blood pressure systolic 2023-02-21 10:20:00 128 mm[Hg] [facility] blood pressure diastolic 2023-02-21 10:20:00 70 mm[Hg] [facility] height 2022-11-30 08:20:00 71.5 [in_i] Comm on [facility] weight 2022-11-30 08:20:00 208 [lb_av] Comm on [facility] temperature 2022-11-30 08:20:00 98 [degF] Comm on [facility] bmi 2022-11-30 08:20:00 28.6 kg/m2 [facility] blood pressure systolic 2022-11-30 08:20:00 122 mm[Hg] [facility] blood pressure diastolic 2022-11-30 08:20:00 76 mm[Hg] [facility] height 2022-09-01 14:10:00 71.5 [in_i] Comm on [facility] weight 2022-09-01 14:10:00 209 [lb_av] Comm on [facility] temperature 2022-09-01 14:10:00 98.0 [degF] Com mon [facility] bmi 2022-09-01 14:10:00 28.74 kg/m2 Comm on [facility] oximetry 2022-09-01 14:10:00 96 % Commo [facility] respiratory rate 2022-09-01 14:10:00 17 /min [facility] blood pressure systolic 2022-09-01 14:10:00 129 mm[Hg] [facility] blood pressure diastolic 2022-09-01 14:10:00 80 mm[Hg] Common [facility] height 2022-04-27 14:00:00 71.5 [in_i] Comm on [facility] weight 2022-04-27 14:00:00 209 [lb_av] Comm on [facility] temperature 2022-04-27 14:00:00 98.0 [degF] Com mon [facility] bmi 2022-04-27 14:00:00 28.74 kg/m2 Comm on [facility] oximetry 2022-04-27 14:00:00 96 % Commo [facility] respiratory rate 2022-04-27 14:00:00 16 /min [facility] blood pressure systolic 2022-04-27 14:00:00 134 mm[Hg] Common [facility] blood pressure diastolic 2022-04-27 14:00:00 70 mm[Hg] Common [facility] height 2022-04-27 14:10:00 71.5 [in_i] Comm on [facility] weight 2022-04-27 14:10:00 209 [lb_av] Comm on [facility] temperature 2022-04-27 14:10:00 98 [degF] Comm on [facility] bmi 2022-04-27 14:10:00 28.74 kg/m2 Comm on [facility] oximetry 2022-04-27 14:10:00 96 % Commo [facility] respiratory rate 2022-04-27 14:10:00 16 /min [facility] blood pressure systolic 2022-04-27 14:10:00 134 mm[Hg] [facility] blood pressure diastolic 2022-04-27 14:10:00 70 mm[Hg] [facility] height 2021-12-03 09:00:00 71.5 [in_i] Comm on [facility] weight 2021-12-03 09:00:00 206 [lb_av] Comm on [facility] temperature 2021-12-03 09:00:00 97.3 [degF] Com [facility] bmi 2021-12-03 09:00:00 28.33 kg/m2 Comm on [facility] blood pressure systolic 2021-12-03 09:00:00 130 mm[Hg] [facility] blood pressure diastolic 2021-12-03 09:00:00 82 mm[Hg] [facility] height 2021-11-03 09:00:00 71.5 [in_i] Comm on [facility] weight 2021-11-03 09:00:00 200 [lb_av] Comm on [facility] temperature 2021-11-03 09:00:00 98.0 [degF] Com [facility] bmi 2021-11-03 09:00:00 27.5 kg/m2 Commo [facility] blood pressure systolic 2021-11-03 09:00:00 132 mm[Hg] [facility] blood pressure diastolic 2021-11-03 09:00:00 82 mm[Hg] [facility] height 2021-10-20 08:30:00 71.5 [in_i] Comm on [facility] weight 2021-10-20 08:30:00 200 [lb_av] Comm on [facility] temperature 2021-10-20 08:30:00 97.9 [degF] Com [facility] bmi 2021-10-20 08:30:00 27.5 kg/m2 Commo [facility] blood pressure systolic 2021-10-20 08:30:00 135 mm[Hg] [facility] blood pressure diastolic 2021-10-20 08:30:00 80 mm[Hg] [facility] height 2021-10-05 09:00:00 71.5 [in_i] Comm on [facility] weight 2021-10-05 09:00:00 200 [lb_av] Comm on [facility] temperature 2021-10-05 09:00:00 97.6 [degF] Com mon [facility] bmi 2021-10-05 09:00:00 27.5 kg/m2 Commo [facility] blood pressure systolic 2021-10-05 09:00:00 134 mm[Hg] Common [facility] blood pressure diastolic 2021-10-05 09:00:00 83 mm[Hg] Common [facility] height 2021-09-16 08:00:00 71.5 [in_i] Comm on [facility] weight 2021-09-16 08:00:00 200 [lb_av] Comm on [facility] bmi 2021-09-16 08:00:00 27.5 kg/m2 Com[facility] blood pressure systolic 2021-09-16 08:00:00 122 mm[Hg] [facility] blood pressure diastolic 2021-09-16 08:00:00 71 mm[Hg] Common [facility] height 2021-08-18 13:20:00 71.5 [in_i] Comm on [facility] weight 2021-08-18 13:20:00 202.0 [lb_av] Co mmon [facility] bmi 2021-08-18 13:20:00 27.78 kg/m2 Comm on [facility] height 2021-07-16 14:10:00 71.5 [in_i] Comm on [facility] weight 2021-07-16 14:10:00 202.0 [lb_av] Co mmon [facility] temperature 2021-07-16 14:10:00 98.1 [degF] Com [facility] bmi 2021-07-16 14:10:00 27.78 kg/m2 Comm on [facility] oximetry 2021-07-16 14:10:00 97 % Commo [facility] respiratory rate 2021-07-16 14:10:00 17 /min [facility] blood pressure systolic 2021-07-16 14:10:00 122 mm[Hg] Common [facility] blood pressure diastolic 2021-07-16 14:10:00 71 mm[Hg] Common [facility] height 2021-04-29 15:40:00 71.5 [in_i] Comm on [facility] weight 2021-04-29 15:40:00 203 [lb_av] Comm on [facility] bmi 2021-04-29 15:40:00 27.92 kg/m2 Comm on [facility] height 2021-02-10 14:00:00 71.5 [in_i] Comm on [facility] weight 2021-02-10 14:00:00 203.1 [lb_av] Co mmon [facility] temperature 2021-02-10 14:00:00 98.1 [degF] Com mon [facility] bmi 2021-02-10 14:00:00 27.93 kg/m2 Comm on [facility] oximetry 2021-02-10 14:00:00 96 % Commo n [facility] respiratory rate 2021-02-10 14:00:00 16 /min [facility] blood pressure systolic 2021-02-10 14:00:00 113 mm[Hg] Common [facility] blood pressure diastolic 2021-02-10 14:00:00 66 mm[Hg] Common [facility] height 2021-02-10 14:00:00 71.5 [in_i] Comm on [facility] weight 2021-02-10 14:00:00 203 [lb_av] Comm on [facility] temperature 2021-02-10 14:00:00 98.1 [degF] Com [facility] bmi 2021-02-10 14:00:00 27.92 kg/m2 Comm on [facility] oximetry 2021-02-10 14:00:00 96 % Commo n [facility] respiratory rate 2021-02-10 14:00:00 16 /min [facility] blood pressure systolic 2021-02-10 14:00:00 113 mm[Hg] [facility] blood pressure diastolic 2021-02-10 14:00:00 66 mm[Hg] [facility] height 2021-01-20 14:40:00 71.5 [in_i] Comm on [facility] weight 2021-01-20 14:40:00 201.0 [lb_av] Co on [facility] temperature 2021-01-20 14:40:00 97.4 [degF] Com [facility] bmi 2021-01-20 14:40:00 27.64 kg/m2 Comm on [facility] oximetry 2021-01-20 14:40:00 96 % Commo n [facility] respiratory rate 2021-01-20 14:40:00 17 /min [facility] blood pressure systolic 2021-01-20 14:40:00 137 mm[Hg] [facility] blood pressure diastolic 2021-01-20 14:40:00 78 mm[Hg] Common [facility] height 2020-12-30 13:30:00 71.5 [in_i] Comm on [facility] weight 2020-12-30 13:30:00 200.2 [lb_av] Co [facility] temperature 2020-12-30 13:30:00 98.1 [degF] Com [facility] bmi 2020-12-30 13:30:00 27.53 kg/m2 Comm on [facility] oximetry 2020-12-30 13:30:00 97 % Commo n [facility] respiratory rate 2020-12-30 13:30:00 16 /min [facility] blood pressure systolic 2020-12-30 13:30:00 135 mm[Hg] [facility] blood pressure diastolic 2020-12-30 13:30:00 70 mm[Hg] [facility] Procedures Procedure Date / Time Performed Performing Clinicia n Source PVR 2024-02-23 00:00:00 [facility] Encounters Start Date/Time End Date/Time Encounter Type Admission Type Attending [facility] Care Department Encounter ID Source 2023-09-20 16:38:00 Outpatient Goode, Minh STLMLC STLMLC [id number] [facility] 2023-09-19 14:05:00 Outpatient Goode, Minh STLMLC STLMLC [id number] [facility] 2023-08-23 15:11:00 Outpatient Goode, Minh STLMLC STLMLC [id number] [facility] 2023-06-28 09:11:00 Outpatient Goode, Minh STLMLC STLMLC [id number] [facility] 2023-06-21 09:30:00 Outpatient Goode, Minh STLMLC STLMLC [id number] [facility] 2023-05-16 14:41:00 Outpatient Goode, Minh STLMLC STLMLC [id number] [facility] 2023-05-09 15:33:00 Outpatient Goode, Minh STLMLC STLMLC [id number] [facility] 2023-02-17 08:33:00 Outpatient Goode, Minh STLMLC STLMLC [id number] [facility] 2022-11-30 08:08:00 Outpatient Goode, Minh STLMLC STLMLC [id number] [facility] 2022-11-29 08:35:00 Outpatient Goode, Minh STLMLC STLMLC [id number] [facility] 2022-08-30 11:32:00 Outpatient Goode, Minh STLMLC STLMLC [id number] [facility] 2022-04-29 09:24:00 Outpatient Goode, Minh STLMLC STLMLC [id number] [facility] 2022-03-19 13:39:01 Outpatient Goode, Minh STLMLC STLMLC [id number] [facility] 2022-02-12 16:19:00 Outpatient Goode, Minh STLMLC STLMLC [id number] [facility] 2021-12-14 06:10:01 Outpatient Goode, Minh STLMLC STLMLC [id number] [facility] 2021-12-02 14:53:00 Outpatient Goode, Minh STLMLC STLMLC [id number] [facility] 2021-09-16 08:12:00 Outpatient Goode, Minh STLMLC STLMLC [id number] [facility] 2021-04-29 13:00:01 Outpatient Goode, Minh STLMLC STLMLC [id number] [facility] 2021-03-04 14:30:45 Outpatient Goode, Minh STLMLC STLMLC [id number] [facility] 2021-03-04 13:12:22 Outpatient Goode, Minh STLMLC STLMLC [id number] [facility] 2021-03-04 12:33:58 Outpatient Goode, Minh STLMLC STLMLC [id number] [facility] 2021-03-04 12:19:44 Outpatient Goode, Minh STLMLC STLMLC [id number] [facility] 2021-03-04 11:22:52 Outpatient Goode, Minh STLMLC STLMLC [id number] [facility] 2021-03-04 11:17:42 Outpatient Goode, Minh STLC STLMLC [id number] [facility] 2021-03-04 11:01:14 Outpatient Goode, Minh STLC STLMLC [id number] [facility] 2024-02-23 00:00:00 2024-02-23 00:00:00 OFFICE VISIT ESTAB PT LEVEL 3 STLMLC STLMLC [id number] [facility] 2024-01-26 00:00:00 2024-01-26 00:00:00 OFFICE VISIT ESTAB PT LEVEL 4 STLMLC STLMLC [id number] [facility] 2023-09-26 00:00:00 2023-09-26 00:00:00 OFFICE VISIT ESTAB PT LEVEL 4 STLMLC STLMLC [id number] [facility] 2023-09-16 00:00:00 2023-09-16 00:00:00 (TEL) STLMLC STLMLC [id number] [facility] 2023-08-25 00:00:00 2023-08-25 00:00:00 OFFICE VISIT ESTAB PT LEVEL 2 STLMLC STLMLC [id number] [facility] 2023-07-12 00:00:00 2023-07-12 00:00:00 (TEL) STLMLC STLMLC [id number] [facility] 2023-06-30 00:00:00 2023-06-30 00:00:00 (TEL) STLMLC STLMLC [id number] [facility] 2023-06-28 00:00:00 2023-06-28 00:00:00 (TEL) STLMLC STLMLC [id number] [facility] 2023-06-28 00:00:00 2023-06-28 00:00:00 OFFICE VISIT ESTAB PT LEVEL 4 STLMLC STLMLC [id number] [facility] 2023-06-14 00:00:00 2023-06-14 00:00:00 (TEL) STLMLC STLMLC [id number] [facility] 2023-06-09 00:00:00 2023-06-09 00:00:00 OFFICE VISIT NEW PT LEVEL 3 STLMLC STLMLC [id number] [facility] 2023-05-23 00:00:00 2023-05-23 00:00:00 OFFICE VISIT ESTAB PT LEVEL 4 STLMLC STLMLC [id number] [facility] 2023-05-09 00:00:00 2023-05-09 00:00:00 (TEL) STLMLC STLMLC [id number] [facility] 2023-02-21 00:00:00 2023-02-21 00:00:00 OFFICE VISIT ESTAB PT LEVEL 4 STLMLC STLMLC [id number] [facility] 2022-11-30 00:00:00 2022-11-30 00:00:00 OFFICE VISIT ESTAB PT LEVEL 3 STLMLC STLMLC [id number] [facility] 2022-11-29 00:00:00 2022-11-29 00:00:00 (TEL) STLMLC STLMLC [id number] [facility] 2022-10-12 19:30:00 2022-10-12 20:30:00 Chang Dumont [id number]. [id number] [facility] 2022-09-01 00:00:00 2022-09-01 00:00:00 OFFICE VISIT ESTAB PT LEVEL 4 STLMLC STLMLC [id number] [facility] 2022-08-19 12:30:00 2022-08-20 13:50:00 Inpatient Gucci Tran [facility] SURG [id number] [facility] 2022-07-27 00:00:00 2022-07-27 00:00:00 (TEL) STLMLC STLMLC [id number] [facility] 2022-07-02 00:00:00 2022-07-02 00:00:00 (TEL) STLMLC STLMLC [id number] [facility] 2022-06-11 00:00:00 2022-06-11 00:00:00 Outpatient DMG DMG [id number] [facility] 2022-04-29 00:00:00 2022-04-29 00:00:00 (TEL) STLMLC STLMLC [id number] [facility] 2022-04-27 00:00:00 2022-04-27 00:00:00 OFFICE VISIT ESTAB PT LEVEL 3 STLMLC STLMLC [id number] [facility] 2022-04-27 00:00:00 2022-04-27 00:00:00 SUB ANNUAL [facility] WELLNESS VISIT STLMLC STLMLC [id number] [facility] 2022-03-19 00:00:00 2022-03-19 00:00:00 (TEL) STLMLC STLMLC [id number] [facility] 2022-02-11 00:00:00 2022-02-11 00:00:00 (TEL) STLMLC STLMLC [id number] [facility] 2022-01-08 00:00:00 2022-01-08 00:00:00 Outpatient DMG DMG [phone] [id number] [facility] 2021-12-03 00:00:00 2021-12-03 00:00:00 OFFICE VISIT ESTAB PT LEVEL 4 STLMLC STLMLC [id number] [facility] 2021-11-03 00:00:00 2021-11-03 00:00:00 OFFICE VISIT ESTAB PT LEVEL 4 STLMLC STLMLC [id number] [facility] 2021-10-20 00:00:00 2021-10-20 00:00:00 OFFICE VISIT ESTAB PT LEVEL 4 STLMLC STLMLC [id number] [facility] 2021-10-05 00:00:00 2021-10-05 00:00:00 OFFICE VISIT ESTAB PT LEVEL 4 STLMLC STLMLC [id number] [facility] 2021-09-22 00:00:00 2021-09-22 00:00:00 (TEL) STLMLC STLMLC [id number] [facility] 2021-09-21 00:00:00 2021-09-21 00:00:00 (TEL) STLMLC STLMLC [id number] [facility] 2021-09-16 00:00:00 2021-09-16 00:00:00 OFFICE VISIT NEW PT LEVEL 4 STLMLC STLMLC [id number] [facility] 2021-09-14 00:00:00 2021-09-14 00:00:00 (TEL) STLMLC STLMLC [id number] [facility] 2021-09-11 00:00:00 2021-09-11 00:00:00 (TEL) STLMLC STLMLC [id number] [facility] 2021-08-24 00:00:00 2021-08-24 00:00:00 (TEL) STLMLC STLMLC [id number] [facility] 2021-08-18 00:00:00 2021-08-18 00:00:00 OL DIG E/M SVC 11-20 MIN STLMLC STLMLC [id number] [facility] 2021-08-17 00:00:00 2021-08-17 00:00:00 (TEL) STLMLC STLMLC [id number] [facility] 2021-07-16 00:00:00 2021-07-16 00:00:00 OFFICE VISIT EST PT LEVEL 3 STLMLC STLMLC [id number] [facility] 2021-05-04 00:00:00 2021-05-04 00:00:00 (TEL) STLMLC STLMLC [id number] [facility] 2021-04-29 00:00:00 2021-04-29 00:00:00 OL DIG E/M SVC 11-20 MIN STLMLC STLMLC [id number] [facility] 2021-04-29 00:00:00 2021-04-29 00:00:00 (TEL) STLMLC STLMLC [id number] [facility] 2021-02-10 00:00:00 2021-02-10 00:00:00 OFFICE VISIT EST PT LEVEL 3 STLMLC STLMLC [id number] [facility] 2021-02-10 00:00:00 2021-02-10 00:00:00 SUB ANNUAL [facility] WELLNESS VISIT STLMLC STLMLC [id number] [facility] 2021-01-20 00:00:00 2021-01-20 00:00:00 OFFICE VISIT EST PT LEVEL 3 STLMLC STLMLC [id number] [facility] 2020-12-30 00:00:00 2020-12-30 00:00:00 (TEL) STLMLC STLMLC [id number] [facility] 2020-12-30 00:00:00 2020-12-30 00:00:00 OFFICE VISIT EST PT LEVEL 3 STLMLC STLMLC [id number] [facility] 2020-09-16 00:00:00 2020-09-16 00:00:00 Outpatient STLMLC STLMLC [id number] [facility] 2020-04-07 00:00:00 2020-04-07 00:00:00 Outpatient STLMLC STLMLC [id number] [facility] 2019-11-14 00:00:00 2019-11-14 00:00:00 Outpatient STLMLC STLMLC [id number] [facility] 2019-11-14 00:00:00 2019-11-14 00:00:00 Outpatient STLC [facility] [id number] [facility] 2019-07-03 15:15:00 2019-07-03 15:15:[address] [facility] [id number] [facility] 2019-05-18 14:57:00 2019-05-18 14:57:[address] [facility] [id number] [facility] 2019-04-18 11:15:00 2019-04-18 11:15:[address] [facility] [id number] [facility] 2019-02-22 14:45:00 2019-02-22 14:45:[address] [facility] [id number] [facility] 2019-02-13 16:45:00 2019-02-13 16:45:[address] [facility] [id number] [facility] 2018-11-15 13:15:00 2018-11-15 13:15:[address] [facility] [id number] [facility] 2018-08-07 16:30:00 2018-08-07 16:30:[address] [facility] [id number] [facility] 2018-05-11 09:15:00 2018-05-11 09:15:[address] [facility] [id number] [facility] 2018-04-25 15:15:00 2018-04-25 15:15:[address] [facility] [id number] [facility] 2017-11-22 08:00:00 2017-11-22 08:00:[address] [facility] [id number] [facility] Results Test Description Test Time Test Comments Results Result Co mments Source - XR CHEST [id number] 20:57:00 [facility] 1945 Sex: M Patient Name: RYAN HNOEYCUTT Unit No: [id number] EXAMS: CPT CODE: [id number] XR CHEST 1V [id number] EXAMINATION: - XR CHEST 1V INDICATION: S/P ICD COMPARISON: None available at time of dictation LOCATION: 6 FINDINGS/ IMPRESSION: Markedly enlarged cardiac silhouette. Left chest defibrillator. No acute pulmonary abnormality, pleural effusion, or pneumothorax. at 2056 Reported and signed by: Harjinder Subramanian MD CC: Dr. Kelechi Holt; Vishal Goode MD; Gucci Lim Technologist: Tsering Worthy RT ARRT Transcrpt Date/Tm/Trnsp: 08/19/2022 (2056) [id number] Orig Print D/T: S: 08/19/2022 (2099) [facility] NAME: RYAN HONEYCUTT [id number] PHYS: [place] [address] : 1945 AGE: 77 SEX: M LOC: [id number] A PHONE #: [phone] EXAM DATE: 08/19/2022 STATUS: ADM IN FAX #: [phone] RADIOLOGY NO: PAGE 1 Signed ReportBASIC METABOLIC [id number] 13:34:00* Test Item Value Reference Range Interpretation Comme nts SODIUM (test code = NA) 137 MMOL/L 137-145 N POTASSIUM (test code = K) 4.3 MMOL/L 3.5-5.1 N CHLORIDE (test code = CL) 106 MMOL/L 98-107 N CARBON DIOXIDE (test code = CO2) 24 MMOL/L 22-30 N GLUCOSE (test code = GLU) 106 MG/DL 74-106 N BLOOD UREA NITROGEN (test code = BUN) 15 MG/DL 9-20 N GLOMERULAR FILTRATION RATE (test code = GFR) > 60 The Glomerular Filtration Rate is a calculated parameterbased on serum Creatinine, patient age and sex. GFR valuesless than 60 mL/min/1.73 square meters are indicative ofChronic Kidney Disease. Values less than 15 mL/min/1.73square meters indicate Kidney failure. The calculation forGFR is based on the CKD-EPI (2020) calculation. This formulais race indifferent and is the recommended formula for GFRby the National Kidney Foundation for Adults.The GFR will not calculate if the sex is unknown or if thepatient's age is <18 years. CREATININE (test code = CREAT) 0.70 MG/DL 0.66-1.25 N CALCIUM (test code = CA) 9.5 MG/DL 8.4-10.2 N [id number] 13:34:00* Test Item Value Reference Range Interpretation Comme nts MAGNESIUM (test code = MAG) 1.7 MG/DL 1.6-2.3 N PROTHROMBIN [id number] 13:31:00* Test Item Value Reference Range Interpretation Comme nts PROTHROMBIN TIME PATIENT (test code = PTP) 17.2 SECONDS 10.1-12.6 H INTERNATIONAL NORMAL RATIO (test code = INR) 1.5 0.86-1.14 H The INR is to be used only for monitoring oral anticoagulanttherap y. INDICATION INR VALUE -------1. Prophylaxis, deep venous thrombosis, including high risk surgery. 2.0 - 3.0 2. Prophylaxis, deep venous thrombosis, hip surgery, treatment for deep venous thrombosis or pulmonary prevention of systemic embolism in patients with valvular heart disease, atrial fibrillation, tissue heart valve, or acute myocardial infarction. 2.0 - 3.0 3. Mechanical prosthesis heart valves, recurrent systemic embolism. 3.0 - 4.5 PTT [id number] 13:31:00* Test Item Value Reference Range Interpretation Comme nts PTT ACTIVATED (test code = APTT) 38.7 SECONDS 27.2-37.9 H CBC W/AUTO [id number] 13:25:00* Test Item Value Reference Range Interpretation Comme nts WHITE BLOOD CELL (test code = WBC) 7.2 K/MM3 3.8-9.8 N RED BLOOD CELL (test code = RBC) 4.45 M/MM3 3.95-5.67 N HEMOGLOBIN (test code = HGB) 14.7 G/DL 12.4-16.7 N HEMATOCRIT (test code = HCT) 43.0 % 35.9-49.5 N MEAN CELL VOLUME (test code = MCV) 97 fL 81.7-96.1 H MEAN CELL HGB (test code = MCH) 33.0 pg 27.6-33.2 N MEAN CELL HGB CONCETRATION (test code = MCHC) 34.2 % 32.9-35.5 N RED CELL DISTRIBUTION WIDTH (test code = RDW) 12.9 % 12.1-15.2 N PLATELET COUNT (test code = PLT) 164 K/MM3 129-368 N MEAN PLATELET VOLUME (test c ode = MPV) 10.0 fl 7.4-10.4 N NEUTROPHIL % (test code = NT%) 60.0 % 43-75 N IMMATURE GRANULOCYTE % (test code = IG%) 0.4 % 0.0-2.0 N LYMPHOCYTE % (test code = LY%) 26.0 % 14-44 N MONOCYTE % (test code = MO%) 11.2 % 4-13 N EOSINOPHIL % (test code = EO%) 1.7 % 0-6 N BASOPHIL % (test code = BA%) 0.7 % 0-2 N NUCLEATED RBC % (test code = NRBC%) 0.0 % 0-1.0 N NEUTROPHIL # (test code = NT#) 4.33 K/mm3 2.0-7.6 N IMMATURE GRANULOCYTE # (test code = IG#) 0.03 x10 3/uL 0-0.03 N LYMPHOCYTE # (test code = LY#) 1.88 K/mm3 1.0-3.8 N MONOCYTE # (test code = MO#) 0.81 K/mm3 0.1-0.8 H EOSINOPHIL # (test code = EO#) 0.12 K/mm3 0.0-0.2 N BASOPHIL # (test code = BA#) 0.05 K/mm3 0.0-0.2 N NUCLEATED RBC # (test code = NRBC#) 0.00 K/mm3 0.0-0.1 N Lipid Panel With LDL/HDL [id number] 00:00:00* Test Item Value Reference Range Interpretation Comme nts Cholesterol, Total (test code = 2093-3) 156 mg/dL See_Comment [Automated message] The system which generated this result transmitted reference range: 100-199 mg/dL. The reference range was not used to interpret this result as normal/abnormal. Triglycerides (test code = 2571-8) 66 mg/dL See_Comment [Automated PO-MO] The system which generated this result transmitted reference range: 0-149 mg/dL. The reference range was not used to interpret this result as normal/abnormal. HDL Cholesterol (test code = 2085-9) 65 mg/dL See_Comment [Automated PO-MO] The system which generated this result transmitted reference range: >39 mg/dL. The reference range was not used to interpret this result as normal/abnormal.
--- NOTE | 2024-02-27 13:02 | RAD REPORT ---
EXAMINATION: ONE VIEW CHEST XR CLINICAL INDICATION: COUGH TECHNIQUE: Frontal chest projection is submitted. Examination is limited by patient positioning and t echnique. COMPARISON: 06/26/2023 FINDINGS: The lungs are well inflated and clear. Marked cardiomegaly. Multilead pacer/defibrillator device pres ent. No displaced fractures identified. IMPRESSION: Marked cardiomegaly.
[2024-02-27 13:09] LABS: SARS-CoV-2 Antigen CONTROL BLUE LINE VIS/BG OK; SARS-CoV-2 Antigen Rapid Res Negative (Negative)
--- NOTE | 2024-02-27 13:49 | EDPHYS ---
Physician Documentation [facility] Name: Ignacio Honeycutt Age: 78 yrs Sex: Male : 1945 Arrival Date: 02/27/2024 Time: 12:10 Bed 13 Private MD: ED Physician Marc Lala HPI: 02/26 12:22 This 78 yrs old Male presents to ER via Unassigned with complaints of Flu rn Symptoms. 12:22 The patient or guardian reports cough. Onset: The symptoms/episode began/occurred 4 rn day(s) ago. Severity of symptoms: At their worst the symptoms were mild, in the emergency department the symptoms are unchanged. Modifying factors: The symptoms are alleviated by nothing, the symptoms are aggravated by nothing. The patient has not experienced similar symptoms in the past. The patient has not recently seen a physician. Patient reports 4 days of cough, brown sputum, no hemoptysis. Reports mild nasal congestion. No sick contacts. No abdominal pain or vomiting. Reports ribs are sore from heavy coughing.. Historical: - Allergies: 12:22 No Known Allergies; cm10 - Home Meds: 12:22 carvedilol 25 mg Oral tab 1 tab [Active]; warfarin 7.5 mg Oral tab [Active]; losartan cm10 25 mg oral tablet 1 tab daily [Active]; spironolactone 25 mg Oral tablet 0.5 tabs daily [Active]; - PMHx: 12:22 irregular HR; Hypertensive disorder; cm10 - PSHx: 12:22 pacemaker; cm10 - Immunization history:: Adult Immunizations up to date. - Infectious Disease History:: Denies. - Family history:: not pertinent. - Social history:: Smoking status: Patient denies any tobacco usage or history of. - Hospitalizations: : No recent hospitalization is reported. 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 Ambulatory to room with occasional cough ENT: No stridor Cardiovascular: Regular rate and rhythm. No pulse deficits. Respiratory: Speaking full sentences, unlabored. No increased work of breathing, no retractions or nasal flaring. Abdomen/GI: Soft, nontender Skin: No mottling or cyanosis Neuro: Awake and alert, GCS 15. Normal gait. Vital Signs: 12:24 BP 137 / 75; Pulse 60; Resp 15; Temp 97.8(O); Pulse Ox 99% on R/A; Weight 95.25 kg; cm10 Height 5 ft. 11 in. ; Pain 5/10; 13:56 BP 129 / 76; Pulse 65; Resp 18; Pulse Ox 99% on R/A; ld1 12:24 Body Mass Index 29.29 (95.25 kg, 180.34 cm) cm10 12:24 Pain Scale: Adult cm10 MDM: 12:14 Medical Screening Exam initiated rn 13:48 Differential Diagnosis: Bronchitis Influenza Upper Respiratory Infection Viral Syndrome rn Pneumonia. Data reviewed: vital signs, nurses notes, lab test result(s), radiologic studies, plain films, and as a result, I will discharge patient. Counseling: I had a detailed discussion with the patient and/or guardian regarding the historical points, exam findings, and any diagnostic results supporting the discharge/admit diagnosis, lab results, radiology results, the need for outpatient follow up, to return to the emergency department if symptoms worsen or persist or if there are any questions or concerns that arise at home. Special discussion: I discussed with the patient/guardian in detail that at this point there is no indication for admission to the hospital. It is understood, however, that if the symptoms persist or worsen the patient needs to return immediately for re-evaluation. ED course: Chest x-ray images negative for pneumonia or pneumothorax per my interpretation. 02/26 12:21 Order name: Flu; Complete Time: 13:48 rn 02/26 12:21 Order name: SARS-COV-2 Antigen Rapid; Complete Time: 13:48 rn 02/26 12:21 Order name: XRAY Chest (1 view); Complete Time: 13:02 rn Administered Medications: 13:56 Drug: Amoxicillin-Clavulanate PO 875 mg PO once Route: PO; ld1 13:56 Follow up: Response: No adverse reaction ld1 13:56 Drug: AZITHromycin PO 500 mg PO once Route: PO; ld1 13:56 Follow up: Response: No adverse reaction ld1 Disposition Summary: 02/27/24 13:48 Discharge Ordered Notes: Location: Home rn Problem: new rn Symptoms: are unchanged rn Condition: Stable rn Diagnosis - Cough rn Followup: rn - With: Private Physician - When: As needed - Reason: Recheck today's complaints, Re-evaluation by your physician Discharge Instructions: - Discharge Summary Sheet rn - Cough, Adult rn Forms: - Medication Reconciliation Form rn - Antibiotic rn new graduate - Prescription Opioid Use rn - Patient Portal Instructions rn - Leadership Thank You Letter rn Prescriptions: - Augmentin 875-125 mg Oral Tablet - take 1 tablet ORAL route every 12 hours for 10 days; 20 tablet; Refills: 0, rn Product Selection Permitted - Zithromax Z-James 250 mg Oral Tablet - take 1 tablet ORAL route as directed for 5 days Day 1 - take two (2) tablets rn one time. Day 2, 3, 4 , 5 take one (1) tablet once daily.; 6 tablet; Refills: 0, Product Selection Permitted Signatures: Dispatcher [employer] Marc Martinez MD MD rn Sims, Lauren RN RN ld1 Tea Seth RN RN cm10
--- NOTE | 2024-02-27 13:49 | ER ---
Nurse's Notes [facility] Name: Ignacio Honeycutt Age: 78 yrs Sex: Male : 1945 Arrival Date: 02/27/2024 Time: 12:10 Bed 13 Private MD: Diagnosis: Cough Presentation: 02/26 12:24 Chief complaint: Patient states: Cough onset . Pt reports pain when coughing. cm10 Coronavirus screen: Client denies travel out of the [place] in the last 14 days. Ebola Screen: Patient denies travel to an Ebola-affected area in the 21 days before illness onset. Initial Sepsis Screen: Does the patient meet any 2 criteria? Yes Does the patient have a suspected source of infection? No. Patient's initial sepsis screen is negative. Risk Assessment: Do you want to hurt yourself or someone else? Patient reports no desire to harm self or others. Onset of symptoms was February 22, 2023. 12:24 Method Of Arrival: Ambulatory cm10 12:24 Acuity: SIMONE 4 cm10 Triage Assessment: 12:25 General: Appears in no apparent distress. uncomfortable, Behavior is calm, cooperative. cm10 Pain: Complains of pain in chest Pain currently is 5 out of 10 on a pain scale. Aggravated by cough. Neuro: No deficits noted. Level of Consciousness is awake, alert, obeys commands, Oriented to person, place, time, situation, Appropriate for age. Respiratory: No deficits noted. Reports cough that is Airway is patent Respiratory effort is even, unlabored, Respiratory pattern is regular, symmetrical. Historical: - Allergies: 12:22 No Known Allergies; cm10 - Home Meds: 12:22 carvedilol 25 mg Oral tab 1 tab [Active]; warfarin 7.5 mg Oral tab [Active]; losartan cm10 25 mg oral tablet 1 tab daily [Active]; spironolactone 25 mg Oral tablet 0.5 tabs daily [Active]; - PMHx: 12:22 irregular HR; Hypertensive disorder; cm10 - PSHx: 12:22 pacemaker; cm10 - Immunization history:: Adult Immunizations up to date. - Infectious Disease History:: Denies. - Family history:: not pertinent. - Social history:: Smoking status: Patient denies any tobacco usage or history of. - Hospitalizations: : No recent hospitalization is reported. Screenin:01 [facility] ED Fall Risk Assessment (Adult) History of falling in the last 3 months, ld1 including since admission No falls in past 3 months (0 pts) Confusion or Disorientation No (0 pts) Intoxicated or Sedated No (0 pts) Impaired Gait No (0 pts) Mobility Assist Device Used No (0 pt) Altered Elimination No (0 pt) Score/Fall Risk Level 0 - 2 = Low Risk Oriented to surroundings, Maintained a safe environment, Educated pt \T\ family on fall prevention, incl call for assistance when getting out of bed, Assessed \T\ reinforced patient's understanding of fall precautions, Provided non-skid footwear, Hourly rounding (assess needs \T\ fall precautionary measures) done, Used ambulatory aids as needed (educated on \T\ assisted with), Used gait belt as appropriate. Abuse screen: Denies threats or abuse. Denies injuries from another. Nutritional screening: No deficits noted. Tuberculosis screening: No symptoms or risk factors identified. Assessment: 13:01 General: Appears in no apparent distress. comfortable, Behavior is calm, cooperative, ld1 appropriate for age. Pain: Denies pain. Neuro: Level of Consciousness is awake, alert, obeys commands, Oriented to person, place, time, situation, Appropriate for age. Cardiovascular: Capillary refill < 3 seconds Patient's skin is warm and dry. Respiratory: Airway is patent Respiratory effort is even, unlabored. GI: Abdomen is flat, non-distended. : No signs and/or symptoms were reported regarding the genitourinary system. EENT: No signs and/or symptoms were reported regarding the EENT system. Derm: No signs and/or symptoms reported regarding the dermatologic system. Musculoskeletal: No signs and/or symptoms reported regarding the musculoskeletal system. Vital Signs: 12:24 BP 137 / 75; Pulse 60; Resp 15; Temp 97.8(O); Pulse Ox 99% on R/A; Weight 95.25 kg; cm10 Height 5 ft. 11 in. ; Pain 5/10; 13:56 BP 129 / 76; Pulse 65; Resp 18; Pulse Ox 99% on R/A; ld1 12:24 Body Mass Index 29.29 (95.25 kg, 180.34 cm) cm10 12:24 Pain Scale: Adult cm10 ED Course: 12:12 Patient arrived in ED. im 12:14 Marc Lala MD is Attending Physician. rn 12:17 Megan Ledbetter, RN is Primary Nurse. ld1 12:25 Triage completed. cm10 12:33 Arm band placed on right wrist. Patient placed in an exam room, on a stretcher. cm10 12:55 XRAY Chest (1 view) In Process Unspecified. EDMS 13:01 Patient has correct armband on for positive identification. Placed in gown. Bed in low ld1 position. Call light in reach. Side rails up X2. monitoring coordinator on. Pulse ox on. NIBP on. Door closed. Noise minimized. Warm blanket given. 13:01 No provider procedures requiring assistance completed. ld1 13:56 Patient did not have IV access during this emergency room visit. ld1 Administered Medications: 13:56 Drug: Amoxicillin-Clavulanate PO 875 mg PO once Route: PO; ld1 13:56 Follow up: Response: No adverse reaction ld1 13:56 Drug: AZITHromycin PO 500 mg PO once Route: PO; ld1 13:56 Follow up: Response: No adverse reaction ld1 Medication: 13:01 VIS not applicable for this client. ld1 Outcome: 13:48 Discharge ordered by . rn 13:56 Discharged to home ambulatory, with family, ld1 13:56 Condition: stable 13:56 Discharge instructions given to patient, Instructed on discharge instructions, follow up and referral plans. medication usage, Demonstrated understanding of instructions, follow-up care, medications, Prescriptions given X 2, 13:56 Patient left the ED. ld1 Signatures: Dispatcher [employer] [facility] Marc Lala MD MD rn Sims, Lauren, RN RN ld1 Esperanza Garduno Clarissa, RN RN cm10
[2024-02-27] MEDS ORDERED: AZITHROMYCIN 250 MG TAB ONE (13:53)
[2024-02-27] MEDS ORDERED: AMOX/K CLAV 875 MG TAB ONE (13:53)
[2024-02-27 14:13] VITALS: TEMP 97.8; O2SAT 99
[2024-02-27 14:14] VITALS: BP 129/76
== END 2024-02-27 13:56 | disposition home or self-care (01) ==
LOC: ER 12:10
DX: R05.9 Cough, unspecified (principal); Z11.52 Encounter for screening for COVID-19; I10 Essential (primary) hypertension; Z95.0 Presence of cardiac pacemaker
CPT/HCPCS: 36415; 71045; 87804; 87811; 99284